=== PATIENT | female | born 1950 | race Caucasian/White ===

== ENCOUNTER 2018-05-13 15:06 | Outpatient (CLI) | payer MEDICARE ==
--- NOTE | 2018-05-14 08:19 | Mammography Report ---
Reason: ROUTINE MAMMO Procedure Date: 05/13/2018 Accession Number: [id number] / [id number] Procedure: [facility] - Screening Mammo w/Mahesh CPT Code: FULL RESULT: EXAM: Screening Mammo w/Mahesh DATE: 05/13/2018 3:46 PM CLINICAL HISTORY: 68-year-old female with history of late childbearing and breast right biopsy with benign pathology results presents for screening. TECHNIQUE: Bilateral CC and MLO views were obtained. COMPARISON: 08/25/2014, 05/21/2013, 03/05/2011, 11/21/2009. FINDINGS: The breasts demonstrate heterogeneously dense fibroglandular parenchyma bilaterally. Postsurgical changes are seen in the right breast. A biopsy clip is seen in the left breast. No suspicious masses, clustered microcalcifications, or regions of architectural distortion are identified. IMPRESSION: Benign findings RECOMMENDATION: Routine annual screening unless otherwise clinically indicated. BIRADS CATEGORY 2: Benign findings STANDARD QUALIFYING STATEMENTS: 1. This examination was not reviewed with the aid of Computer-Aided Detection (CAD). 2. A negative or benign imaging report should not delay biopsy if clinically suspicious findings are present. Consider surgical consultation if warranted. More than 5% of cancers are not identified by imaging. 3. Dense breasts may obscure an underlying neoplasm. 4. This examination was reviewed with the aid of 3D breast imaging (tomosynthesis).
== END 2018-05-13 15:07 | disposition home or self-care (01) ==
LOC: DI 15:06
PROVIDERS: ATTEND Registered Nurse
DX: Z12.31 Encounter for screening mammogram for malignant neoplasm of breast (principal)
CPT/HCPCS: 77063; 77067

== ENCOUNTER 2019-09-03 23:07 | Outpatient (CLI) | payer MEDICARE | END 2019-09-03 23:59 | disposition critical access hospital (66) | LOC: EMS 23:07 | PROVIDERS: ATTEND Surgery | DX: R68.89 Other general symptoms and signs (principal) | CPT/HCPCS: A0425; A0429 ==

== ENCOUNTER 2019-09-03 23:40 | Emergency (ER) | payer MEDICARE ==
--- NOTE | 2019-09-03 23:38 | ED Physician Documentation ---
History of Present Illness - Stated complaint Stated Complaint: ANXIETY - History obtained from History obtained from: Patient (The patient is a 69-year-old female who presents to the emergency room tonight via EMS after she drank alcohol and vaped some marijuana and now reports that she is not feeling good. She reports that she feels mildly disoriented and dizzy and nauseated. She denies chest pain, fevers, chills, night sweats headache, neck pain or rashes.Patient denies any auditory or visual hallucinations and denies any homicidal or suicidal thoughts.) Review of Systems Constitutional: reports: Reviewed and negative Eyes: reports: Reviewed and negative Ears: reports: Reviewed and negative Nose: reports: Reviewed and negative Throat: reports: Reviewed and negative Cardiac: reports: Reviewed and negative Respiratory: reports: Reviewed and negative GI: reports: Nausea : reports: Reviewed and negative Skin: reports: Reviewed and negative Musculoskeletal: reports: Reviewed and negative Neurologic: reports: Generalized weakness Psychiatric: reports: Reviewed and negative Endocrine: reports: Reviewed and negative Immunocompromised: reports: Reviewed and negative PD PAST MEDICAL HISTORY - Present Medications Home Medications: Ambulatory Orders Medication Instructions Recorded Confirmed ALPRAZolam [Xanax] 0.25 mg PO HS 07/21/15 07/21/15 Amitriptyline [Elavil] 10 mg PO HS #30 tablet 07/21/15 - Allergies Allergies/Adverse Reactions: Allergies Allergy/AdvReac Type Severity Reaction Status Date / Time shellfish derived Allergy Unknown Verified 09/03/19 23:55 Sulfa (Sulfonamide Allergy Rash Verified 09/03/19 23:55 Antibiotics) PD ED PE NORMAL - Vitals Vital signs reviewed: Yes - General General: Alert and oriented X 3, No acute distress, Well developed/nourished, Other - HEENT HEENT: Atraumatic, PERRL, EOMI, Ears normal, Moist mucous membranes, Pharynx benign, Dentition benign - Neck Neck: Supple, no meningeal sign, No adenopathy, No JVD - Cardiac Cardiac: RRR, No murmur - Respiratory Respiratory: No respiratory distress, Clear bilaterally - Abdomen Abdomen: Normal bowel sounds, Soft, Non tender, Non distended, No organomegaly - Back Back: No CVA TTP, No spinal TTP - Derm Derm: Normal color, Warm and dry, No rash - Extremities Extremities: No deformity, No tenderness to palpate, Normal ROM s pain, No edema, No calf tenderness / cord - Neuro Neuro: Alert and oriented X 3, plowing gardens 2-12 intact, No motor deficit, No sensory deficit, Normal speech, Other (No facial droop, no unilateral weakness, normal [id number], normal [id number], normal rapid alternating movements, strength is 5 out of 5 bilateral upper and lower extremity sensations intact to light touch throughout. Reflexes are 2+ and symmetric in bilateral patellar Achilles. Normal gait.) - Psych Psych: Other (paranoid and anxious) Results - Vitals Vitals: Vital Signs - 24 hr 09/03/19 23:43 Temperature 36.9 C Heart Rate 82 Respiratory 16 Rate Blood Pressure 136/84 H O2 Saturation 94 Oxygen O2 Source Room air PD MEDICAL DECISION MAKING - ED course Complexity details: re-evaluated patient (patient reexamined multiple times, her paranoia and anxiety have improved after 1 dose of 1mg if of po ativan. patient improved clinically and is now clinically sober and has a sober ride to pick her up and take her home. patient agreeable to discharge home at this time. ), considered differential (Likely alcohol and marijuana intoxication.), d/w patient Departure - Departure Disposition: 01 Home, Self Care Clinical Impression: Intoxication with marijuana Qualifiers: Complication of substance-induced condition: with unspecified complication Qualified Code(s): F12.929 - Cannabis use, unspecified with intoxication, unspecified Alcohol intoxication Qualifiers: Complication of substance-induced condition: with unspecified complication Qualified Code(s): F10.929 - Alcohol use, unspecified with intoxication, unspecified Condition: Stable Instructions: ED Drug React Adverse Other Follow-Up: Mattie Segura ARNP [Primary Care Provider] - 09/04/19 Discharge Date/Time: 09/04/19 01:21
[2019-09-03 23:45] VITALS: BP 136/84
[2019-09-04] MEDS ORDERED: LORazepam 1 MG TABLET PO STA (00:31)
== END 2019-09-04 01:21 | disposition home or self-care (01) ==
LOC: EDUNIT# → ED 23:40
DX: F10.129 Alcohol abuse with intoxication, unspecified (principal); F12.980 Cannabis use, unspecified with anxiety disorder
CPT/HCPCS: 99283; 99284; J8499

== ENCOUNTER 2020-03-02 08:58 | Outpatient (CLI) | payer MEDICARE ==
[2020-03-02 15:12] LABS: BILIRUBIN,URINE NEGATIVE (NEGATIVE); GLUCOSE, URINE (UA) NEGATIVE (NEGATIVE); KETONES,URINE (UA) NEGATIVE (NEGATIVE); LEUKOCYTE ESTERASE, URINE SMALL (NEGATIVE); NITRITE,URINE NEGATIVE (NEGATIVE); OCCULT BLOOD,URINE NEGATIVE (NEGATIVE); PROTEIN,URINE NEGATIVE (NEGATIVE); UROBILINOGEN,URINE 0.2 (NORMAL) E.U./dL (NORMAL)
[2020-03-02 15:14] LABS: CLARITY,URINE HAZY (CLEAR)
[2020-03-02 15:16] LABS: BASOPHILS % (AUTO) 0.4 %; EOSINOPHILS # (AUTO) 0.3 10^3/uL (0.0-0.7); EOSINOPHILS % (AUTO) 5.9 %; HGB - HEMOGLOBIN 13.7 g/dL (12.0-16.0); LYMPHOCYTES # (AUTO) 1.4 10^3/uL (1.5-3.5); LYMPHOCYTES % (AUTO) 28.7 %; MEAN CORPUSCULAR HEMOGLOBIN 29.1 pg (27.0-31.0); MEAN CORPUSCULAR HGB CONC 31.6 g/dL (32.0-36.0); MEAN CORPUSCULAR VOLUME 92.1 fL (81.0-99.0); MEAN PLATELET VOLUME 10.1 fL (7.9-10.8); MONOCYTES # (AUTO) 0.4 10^3/uL (0.0-1.0); MONOCYTES % (AUTO) 7.5 %; NEUTROPHILS # (AUTO) 2.7 10^3/uL (1.5-6.6); NEUTROPHILS % (AUTO) 57.1 %; PLT - PLATELET COUNT 243 10^3/uL (130-450); RED CELL DISTRIBUTION WIDTH 12.7 % (12.0-15.0); WHITE BLOOD COUNT 4.8 x10^3/uL (4.8-10.8)
[2020-03-02 15:24] LABS: RBC,URINE None Seen /HPF (0-5); SQUAMOUS EPITHELIAL CELL,UR MOD Squamous (<= Few)
[2020-03-02 15:25] LABS: BACTERIA,URINE None Seen /HPF (None Seen)
[2020-03-02 15:28] LABS: ALBUMIN 4.2 g/dL (3.2-5.5); ALBUMIN/GLOBULIN RATIO 1.8 (1.0-2.2); ALKALINE PHOSPHATASE 46 IU/L (42-121); ALT ALANINE AMINOTRANSFERASE 18 IU/L (10-60); AST ASPARTATE AMINOTRANSFERASE 16 IU/L (10-42); BILIRUBIN,TOTAL 0.8 mg/dL (0.2-1.0); BUN - BLOOD UREA NITROGEN 21 mg/dL (6-20); CALCIUM 9.2 mg/dL (8.5-10.3); CARBON DIOXIDE - CO2 27 mmol/L (21-32); CHLORIDE 106 mmol/L (101-111); CHOL/HDL RATIO 2.9 (<4.4); CHOLESTEROL 226 mg/dL; CREATININE 0.7 mg/dL (0.4-1.0); GLUCOSE 102 mg/dL (70-100); HDL CHOLESTEROL 78 mg/dL; LDL CHOLESTEROL,CALCULATED 137 mg/dL; LDL CHOLESTEROL,DIRECT 145 mg/dL; LDL/HDL RATIO 1.8 (<4.4); SODIUM 139 mmol/L (135-145); TOTAL PROTEIN 6.6 g/dL (6.7-8.2); VLDL CHOLESTEROL 11 mg/dL
[2020-03-02 19:57] LABS: HEMOGLOBIN A1c% 5.6 % (4.27-6.07)
== END 2020-03-02 08:59 | disposition home or self-care (01) ==
LOC: LAB.S 08:58
PROVIDERS: ATTEND Registered Nurse
DX: R73.03 Prediabetes (principal); R35.0 Frequency of micturition; Z13.6 Encounter for screening for cardiovascular disorders
CPT/HCPCS: 36415; 80053; 80061; 81001; 83036; 83721; 85025; 87086

== ENCOUNTER 2020-04-26 10:01 | Outpatient (CLI) | payer MEDICARE ==
--- NOTE | 2020-04-26 17:25 | DEXA Report ---
PROCEDURE: Dexa Spine and/or Hip INDICATIONS: OSTEOPOROSIS TECHNIQUE: Dual energy x-ray absorptiometry (DXA) was performed on a [employer] System. Regions measur ed are the AP Spine, femoral neck, and if needed forearm. COMPARISON: None. FINDINGS: Lumbar Spine: Bone Mineral Density 1.032 g/cm/cm,T score -1.2, osteopenia Left Hip: Bone Mineral Density 0.718 g/cm/cm,T score -2.3, osteopenia Left Femoral Neck: Bone Mineral Density 0.731 g/cm/cm, T score -2.2, osteopenia (T score greater or equal to -1.0: NORMAL) (T score from -1.1 to -2.4: OSTEOPENIA) (T score less than or equal to -2.5 to: OSTEOPOROSIS) Impression: Osteopenia. Patients with diagnosis of osteoporosis or osteopenia should have regular bone mineral density assess ment. For those eligible for Medicare, routine testing is allowed once every 2 years. Testing frequ ency can be increased for patients who have rapidly progressing disease or for those who are receivin g medical therapy to restore bone mass. Reviewed by: Maira Martínez MD, PhD on 04/26/2020 5:24 PM PST Approved by: Maira Martínez MD, PhD on 04/26/2020 5:24 PM PST Station ID: [id number]
== END 2020-04-26 10:02 | disposition home or self-care (01) ==
LOC: DI 10:01
PROVIDERS: ATTEND Registered Nurse
DX: M85.89 Other specified disorders of bone density and structure, multiple sites (principal)
CPT/HCPCS: 77080

== ENCOUNTER 2020-08-09 10:04 | Outpatient (CLI) | payer MEDICARE ==
--- NOTE | 2020-08-09 12:45 | Mammography Report ---
BILATERAL DIGITAL SCREENING MAMMOGRAM 3D/2D: 08/09/2020 CLINICAL: Routine screening. Comparison is made to exams dated: 05/13/2018 mammogram, 08/25/2014 mammogram, and 05/21/2013 mammogra m - [facility]. The tissue of both breasts is heterogeneously dense. This may lowe r the sensitivity of mammography. There is a biopsy clip in the left breast. No significant masses, calcifications, or other findings are seen in either breast. There has been no significant interval change. IMPRESSION: NEGATIVE There is no mammographic evidence of malignancy. A 1 year screening mammogram is recommended. This exam was interpreted at Station ID: [id number]. NOTE: For mammograms, a report in lay terms will be sent to the patient. Approximately 15% of breast malignancies will not be visualized mammographically. In the management of a palpable breast mass, a negative mammogram must not discourage biopsy of a clinically suspicious lesion. Electronically Signed By: Rosa [email or web address]/[email or web address]:08/09/2020 11:27:56 ACR BI-RADS Category 1: Negative [id number] PARENCHYMAL PATTERN: (D) - The breast(s) demonstrate(s) heterogeneously dense fibroglandular parefren henson. BI-RADS CATEGORY: (1) - 1 RECOMMENDATION: (ANNUAL) - Recommend routine annual screening mammography. [id number] 1 year screening LATERALITY: (B)
== END 2020-08-09 10:05 | disposition home or self-care (01) ==
LOC: DI.S 10:04
PROVIDERS: ATTEND Registered Nurse
DX: Z12.31 Encounter for screening mammogram for malignant neoplasm of breast (principal)

== ENCOUNTER 2021-04-03 13:16 | Outpatient (CLI) | payer MEDICARE | END 2021-04-03 13:17 | disposition home or self-care (01) | LOC: COV 13:16 | PROVIDERS: ATTEND Dermatology MOHS-Micrographic Surgery | DX: Z01.812 Encounter for preprocedural laboratory examination (principal); Z20.822 Contact with and (suspected) exposure to COVID-19 ==